=== PATIENT | male | born 1985 | race Hispanic/Latino ===

== ENCOUNTER 2020-09-19 17:01 | Emergency (ER) | payer OTHER, SELFPAY ==
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
== END 2020-09-19 19:13 ==
LOC: ERS 17:01
DX: S40.012A Contusion of left shoulder, initial encounter (principal); F17.210 Nicotine dependence, cigarettes, uncomplicated; V89.2XXA Person injured in unspecified motor-vehicle accident, traffic, initial encounter
CPT/HCPCS: 71045

== ENCOUNTER 2022-05-27 16:07 | Emergency (ER) | payer OTHER, SELFPAY | END 2022-05-27 16:37 | disposition home or self-care (01) | LOC: ERS 16:07 | DX: Z00.00 Encounter for general adult medical examination without abnormal findings (principal) | CPT/HCPCS: 99281 ==